=== PATIENT | female | born 1960 | race Caucasian/White ===

== ENCOUNTER 2017-07-29 10:50 | Emergency (ER) | payer SELFPAY ==
[2017-07-29] MEDS ORDERED: Nitroglycerin 0.4 MG TAB 1 EACH ONE (11:26)
[2017-07-29] MEDS ORDERED: Aspirin 325 MG TAB ONE (11:26)
[2017-07-29 11:30] LABS: #Basophils 0.1 thou/uL (0.0-0.2); #Eosinphils 0.1 thou/uL (0.0-0.7); #Lymphocytes 2.6 thou/uL (1.20-3.40); #Monocytes 0.3 thou/uL (0.11-0.59); #Neutrophils 5.3 thou/uL (1.40-6.50); %Basophils 0.9 % (0.0-1.0); %Eosinophils 1.2 % (0.0-10.0); %Neutrophils 62.9 % (42.0-75.0); Hemoglobin 12.9 g/dL (12.0-16.0); Mean Corpuscular HGB CONC 32.4 g/dL (32.0-36.0); Mean Corpuscular Hemoglobin 32.8 pg (27.0-31.0); Mean Platelet Volume 6.2 fL (7.4-10.4); Platelet Count 287 thou/uL (130-400); RBC Distribution Width 13.3 % (11.5-14.5); Red Blood Cell (RBC) Count 3.93 mill/uL (4.20-5.40); White Blood Cell (WBC) Count 8.4 thou/uL (4.8-10.8)
--- NOTE | 2017-07-29 11:37 | RAD ---
PORTABLE AP CHEST: Date: 07-29-17 History: Chest pain. Comparison: 07-17-15 FINDINGS: Cardiac silhouette is magnified by projection. Pulmonary vasculature is within normal limits. The alec ngs remain clear. There has been no interval change compared to the prior exam. IMPRESSION: No acute cardiopulmonary process. POS: [facility]
[2017-07-29 11:40] LABS: INR-International Normal Ratio 0.9; PTT 25.8 SEC (22.9-36.1); Prothrombin Time 12.5 SEC (12.0-14.7)
[2017-07-29 11:52] LABS: ALT (SGPT) 33 U/L (8-55); AST (SGOT) 21 U/L (5-34); Albumin 4.3 g/dL (3.5-5.0); Alkaline Phosphatase 73 U/L (40-150); Anion Gap 16 mmol/L (10-20); BUN (Urea Nitrogen) 10 mg/dL (9.8-20.1); Bilirubin, Total 0.4 mg/dL (0.2-1.2); CK (CPK) 61 U/L (29-168); Calc. Creatinine Clearance 0 mL/min (70-130); Calcium 9.3 mg/dL (7.8-10.44); Carbon Dioxide 24 mmol/L (22-29); Chloride 105 mmol/L (98-107); Estimated GFR-MDRD Greater than 90; Globulin 3.3 g/dL (2.4-3.5); Glucose 105 mg/dL (70-105); Protein, Total 7.6 g/dL (6.0-8.3); Sodium 141 mmol/L (136-145)
[2017-07-29 11:55] LABS: CKMB 0.6 ng/mL (0-6.6); Troponin I Less than 0.010 ng/mL (< 0.028)
[2017-07-29] MEDS ORDERED: Ketorolac Tromethamine 30 MG/ML VIAL ONE (12:03)
== END 2017-07-29 12:37 | disposition home or self-care (01) ==
LOC: MADERS 10:50
DX: R07.82 Intercostal pain (principal); F17.210 Nicotine dependence, cigarettes, uncomplicated
CPT/HCPCS: 71010; 80053; 82553; 83880; 84484; 85025; 85610; 85730; 93005; 94760; 99406; J1885

== ENCOUNTER 2019-10-19 10:51 | Emergency (ER) | payer SELFPAY ==
--- NOTE | 2019-10-19 12:10 | CT ---
CT Brain WO Con: 10/19/2019 11:44 AM CLINICAL HISTORY: Fall with hitting right side of head on bathtub. IMAGING TECHNIQUE: Multiple CT images were obtained of the brain without IV contrast. COMPARISON: None. FINDINGS: Brain: No acute infarct or hemorrhage is evident. No midline shift. Ventricles: Normal. No hydrocephalus. Skull: Intact. Visualized Paranasal sinuses: There air-fluid levels within the ethmoid air cells, sphenoid sinus and maxillary sinuses. Mastoid air cells:Clear. Extracranial soft tissues:Normal. IMPRESSION: No acute intracranial abnormality. Air-fluid levels within the paranasal sinuses suspicious for acute sinusitis
== END 2019-10-19 12:49 | disposition home or self-care (01) ==
LOC: MADERS 10:51
DX: S06.0X0A Concussion without loss of consciousness, initial encounter (principal); I10 Essential (primary) hypertension; E78.2 Mixed hyperlipidemia; F32.9 Major depressive disorder, single episode, unspecified; F17.210 Nicotine dependence, cigarettes, uncomplicated; W01.198A Fall on same level from slipping, tripping and stumbling with subsequent striking against other object, initial encounter; Y93.01 Activity, walking, marching and hiking
CPT/HCPCS: 70450

== ENCOUNTER 2021-03-04 11:41 | Emergency (ER) | payer SELFPAY ==
[2021-03-04] MEDS ORDERED: Iopamidol 370 76% 125 ML VIAL FS ONE (12:06)
[2021-03-04 12:59] LABS: Band 6 % (5-11); Eosinophils 4 % (0-10); Lymphocytes 33 % (21-51); MDiff Complete? YES; Macrocytosis SLIGHT = 6-15 cells (100X) (0-5/hpf); Mean Corpuscular HGB CONC 31.3 g/dL (32.0-36.0); Mean Corpuscular Hemoglobin 32.7 pg (27.0-31.0); Mean Corpuscular Volume 104.4 fL (78.0-98.0); Monocytes 4 % (0-10); Neutrophil 53 % (42-75); Platelet Count 258 thou/uL (130-400); Platelet Morphology Comment Appears Adequate; RBC Distribution Width 12.9 % (11.5-14.5); Red Blood Cell (RBC) Count 3.98 mill/uL (4.20-5.40); White Blood Cell (WBC) Count 8.3 thou/uL (4.8-10.8)
[2021-03-04 13:22] LABS: INR-International Normal Ratio 0.8; PTT 23.9 sec (22.9-36.1); Prothrombin Time 11.7 sec (12.0-14.7)
[2021-03-04 13:42] LABS: ALT (SGPT) 30 U/L (8-55); AST (SGOT) 28 U/L (5-34); Albumin 4.1 g/dL (3.5-5.0); Alkaline Phosphatase 63 U/L (40-110); Anion Gap 18 mmol/L (10-20); BUN (Urea Nitrogen) 13 mg/dL (9.8-20.1); Bilirubin, Total 0.3 mg/dL (0.2-1.2); Calc. Creatinine Clearance 0 mL/min (70-130); Calcium 9.1 mg/dL (7.8-10.44); Carbon Dioxide 22 mmol/L (22-29); Chloride 107 mmol/L (98-107); Globulin 3.3 g/dL (2.4-3.5); Glucose 114 mg/dL (70-105); Potassium 4.9 mmol/L (3.5-5.1); Protein, Total 7.4 g/dL (6.0-8.3); Sodium 142 mmol/L (136-145)
== END 2021-03-04 14:31 | disposition home or self-care (01) ==
LOC: MADERS 11:41
DX: R51.9 Headache, unspecified (principal); R42 Dizziness and giddiness; H65.93 Unspecified nonsuppurative otitis media, bilateral; R11.0 Nausea; M54.2 Cervicalgia; R29.700 NIHSS score 0; D75.89 Other specified diseases of blood and blood-forming organs; E78.5 Hyperlipidemia, unspecified; E78.1 Pure hyperglyceridemia; I10 Essential (primary) hypertension; F17.210 Nicotine dependence, cigarettes, uncomplicated
CPT/HCPCS: 70450; 70496; 70498; 71045; 80053; 85025; 85610; 85730; Q9967

== ENCOUNTER 2024-11-13 16:23 | Emergency (ER) | payer SELFPAY ==
[2024-11-13] MEDS ORDERED: Albuterol 200 PUFF (6.7GM INHALER) ONE (16:52)
== END 2024-11-13 17:32 | disposition home or self-care (01) ==
LOC: MADERS 16:23
DX: J06.9 Acute upper respiratory infection, unspecified (principal); J45.901 Unspecified asthma with (acute) exacerbation; I10 Essential (primary) hypertension; F17.210 Nicotine dependence, cigarettes, uncomplicated
CPT/HCPCS: 87428; 99283